=== PATIENT | female | born 1995 | race Caucasian/White ===

== ENCOUNTER 2018-08-10 21:51 | Emergency (ER) | payer BC ==
[2018-08-10] MEDS ORDERED: diphenhydrAMINE 25 MG Cap PO ONE (22:07)
--- NOTE | 2018-08-10 22:07 | EDM.PDOC ---
ED HPI GENERAL MEDICAL PROBLEM - General Chief Complaint: Allergic Reaction Stated Complaint: allergic reaction Time Seen by Provider: 08/10/18 21:51 Source of Information: Reports: Patient, Family History Limitations: Reports: No Limitations - History of Present Illness INITIAL COMMENTS - FREE TEXT/NARRATIVE: 23 YO WF presents to ER complaining of throat discomfort after taking Flagyl for bacterial vaginosis. Pt reports she has taken 6 doses of the medication and today felt fullness in her throat. Pt reports sensitivity to antibiotics in the past. Pt reports swelling of her lip after using antibiotic eye drop in the past. Pt denies any shortness of breath, no dizziness, no rash, no swekking, no wheezing or chest tightness. Pt denies any hypersensitivity disorders like eczema or asthma. Pt reports anxiety in the past but has never been diagnosed or treated. Onset: Today Location: Reports: Generalized Severity: Mild Improves with: Reports: None Worsens with: Reports: None Associated Symptoms: Reports: No Other Symptoms - Related Data Allergies Allergy/AdvReac Type Severity Reaction Status Date / Time hydrocodone Allergy Nausea Verified 08/10/18 21:52 Home Meds: Home Meds Ethinyl Estradiol/Norgestrel [Cryselle 28-Day] 1 tab PO DAILY 08/10/18 [History] ED ROS ALLERGIC REACTION - Review of Systems Review Of Systems: See Below Constitutional: Reports: No Symptoms HEENT: Reports: Throat Swelling Respiratory: Reports: No Symptoms Cardiovascular: Reports: No Symptoms Endocrine: Reports: No Symptoms GI/Abdominal: Reports: No Symptoms : Reports: No Symptoms Musculoskeletal: Reports: No Symptoms Skin: Reports: No Symptoms Neurological: Reports: No Symptoms Psychiatric: Reports: No Symptoms Hematologic/Lymphatic: Reports: No Symptoms Immunologic: Reports: No Symptoms ED EXAM GENERAL NO PERIP PULSE - Physical Exam Exam: See Below Exam Limited By: No Limitations General Appearance: Alert, WD/WN, No Apparent Distress, Anxious Eye Exam: Bilateral Eye: PERRL Throat/Mouth: Normal Inspection, Normal Lips, Normal Teeth, Normal Gums, Normal Oropharynx, Normal Voice, No Airway Compromise Head: Atraumatic, Normocephalic Neck: Normal Inspection, Supple, Non-Tender, Full Range of Motion Respiratory/Chest: No Respiratory Distress, Lungs Clear, Normal Breath Sounds, No Accessory Muscle Use, Chest Non-Tender Cardiovascular: Normal Peripheral Pulses, Regular Rate, Rhythm, No Edema, No Gallop, No JVD, No Murmur, No Rub GI/Abdominal: Normal Bowel Sounds, Soft, Non-Tender, No Organomegaly, No Distention, No Abnormal Bruit, No Mass Back Exam: Normal Inspection, Full Range of Motion, NT Extremities: Normal Inspection, Normal Range of Motion, Non-Tender, Normal Capillary Refill, No Pedal Edema Neurological: Alert, Oriented, CN II-XII Intact, Normal Cognition, Normal Gait, Normal Reflexes, No Motor/Sensory Deficits Psychiatric: Normal Affect, Normal Mood Skin Exam: Warm, Dry, Intact, Normal Color, No Rash Lymphatic: No Adenopathy Course - Vital Signs Last Recorded V/S: Last Vital Signs Temp 36.7 C 08/10/18 21:54 Pulse 103 H 08/10/18 21:54 Resp 18 08/10/18 21:54 BP 134/72 08/10/18 21:54 Pulse Ox 99 08/10/18 21:54 - Orders/Labs/Meds Orders: Active Orders 24 hr Category Date Time Status diphenhydrAMINE [Benadryl] Med 08/10/18 22:07 Once 50 mg PO ONETIME ONE Departure - Departure Time of Disposition: 22:14 Disposition: Home, Self-Care 01 Condition: Good Clinical Impression: Adverse reaction to drug Qualifiers: Encounter type: initial encounter Qualified Code(s): T50.905A - Adverse effect of unspecified drugs, medicaments and biological substances, initial encounter - Discharge Information Instructions: Drug Allergy, [id number] Referrals: Carol Angeles PA-C [Physician Defensive Driving Instructor] - Forms: ED Department Discharge Additional Instructions: 1. discharge home 3. benadryl 50mg PO Q6 PRN allergic reaction 4. stop Flagyl 5. follow up with PCP for further evaluation and treatment 6. return to ER for worsening symptoms - My Orders Last 24 Hours: My Active Orders 08/10/18 22:07 diphenhydrAMINE [Benadryl] 50 mg PO ONETIME ONE - Assessment/Plan Last 24 Hours: My Active Orders 08/10/18 22:07 diphenhydrAMINE [Benadryl] 50 mg PO ONETIME ONE Assessment:: 1. adverse medication reaction Plan: 1. discharge home 3. benadryl 50mg PO Q6 PRN allergic reaction 4. stop Flagyl 5. follow up with PCP for further evaluation and treatment 6. return to ER for worsening symptoms
== END 2018-08-10 22:29 | disposition home or self-care (01) ==
LOC: KA.ED 21:51
DX: R07.0 Pain in throat (principal); T37.3X5A Adverse effect of other antiprotozoal drugs, initial encounter; N76.0 Acute vaginitis; B96.89 Other specified bacterial agents as the cause of diseases classified elsewhere; Z88.5 Allergy status to narcotic agent
CPT/HCPCS: 99282; A9270-GY

== ENCOUNTER 2024-12-15 13:22 | Emergency (ER) | payer BC ==
[2024-12-15] MEDS ORDERED: Sodium Chloride 0.9% 10 ML Syringe FLUSH PRN (13:43)
[2024-12-15 13:53] LABS: BASOPHILS ABSOLUTE AUTO 0.02 10^3/uL (0.00-0.10); BASOPHILS PERCENT AUTO 0.4 % (0.0-1.0); EOSINOPHILS ABSOLUTE AUTO 0.06 10^3/uL (0.10-0.30); EOSINOPHILS PERCENT AUTO 1.1 % (1.0-3.0); IMMATURE GRAN ABSOLUTE AUTO 0.00 10^3/uL (0.00-0.04); IMMATURE GRAN PERCENT AUTO 0.0 % (0.0-0.4); LYMPHOCYTES ABSOLUTE AUTO 1.46 10^3/uL (1.00-4.00); LYMPHOCYTES PERCENT AUTO 27.4 % (20.0-40.0); MEAN PLATELET VOLUME 10.9 fL (7.4-10.4); MONOCYTES ABSOLUTE AUTO 0.45 10^3/uL (0.10-0.80); MONOCYTES PERCENT AUTO 8.5 % (2.0-8.0); NEUTROPHILS ABSOLUTE AUTO 3.33 10^3/uL (2.50-7.00); NEUTROPHILS PERCENT AUTO 62.6 % (50.0-70.0); PLATELET COUNT,PLT 250 10^3/uL (150-400); RED BLOOD CELL COUNT 4.72 10^6/uL (3.80-5.50); RED CELL DISTRIBUTION WIDTH 14.0 % (11.5-14.5); WHITE BLOOD CELL COUNT,WBC 5.32 10^3/uL (5.00-10.00)
[2024-12-15] MEDS: Ondansetron 4 MG/2 ML SDV IVPUSH ONE (13:55)
[2024-12-15 14:15] LABS: ALANINE AMINOTRANSFERASE,ALT 29 U/L (14-63); ASPARTATE AMNIOTRANSFERASE,AST 17 U/L (15-37); BILIRUBIN TOTAL 0.7 mg/dL (0.2-1.0); BLOOD UREA NITROGEN,BUN 14 mg/dL (7-18); CARBON DIOXIDE,CO2 27.9 mmol/L (21.0-32.0); CHLORIDE,CL 103 mmol/L (98-107); CREATININE 0.82 mg/dL (0.51-1.17); GLUCOSE RANDOM 94 mg/dL (70-140); POTASSIUM,K 4.1 mmol/L (3.5-5.1); PROTEIN TOTAL,TP 7.7 g/dL (6.4-8.2); SODIUM,NA 141 mmol/L (136-145)
[2024-12-15 14:16] LABS: ESTIMATED GFR 100 mL/min (>=60)
[2024-12-15 14:46] LABS: APPEARANCE,URINE SLIGHTLY CLOUDY (CLEAR); GLUCOSE,URINE NEGATIVE (NEGATIVE)
[2024-12-15 14:54] LABS: OCCULT BLOOD,URINE SMALL (NEGATIVE)
[2024-12-15 14:55] LABS: EPITHELIAL CELLS,URINE FEW /LPF
[2024-12-15] MEDS: Iopamidol 755 Mg/ML 100 ML Bottle IV ONE (15:21)
== END 2024-12-15 16:50 ==
LOC: KA.ED 13:22
DX: N94.89 Other specified conditions associated with female genital organs and menstrual cycle (principal); R10.32 Left lower quadrant pain; R42 Dizziness and giddiness; R11.0 Nausea; Z88.5 Allergy status to narcotic agent; Z79.899 Other long term (current) drug therapy
CPT/HCPCS: 36415; 74177; 80053; 81001; 82150; 83690; 83735; 84484; 84703; 85025; 86140; 87086; 96361; 96374; 99284; 99285-25; J2405; J7030; Q9967